=== PATIENT | male | born 1955 | race Caucasian/White ===

== ENCOUNTER 2020-09-20 15:21 | Emergency (ER) | payer OTHER ==
[2020-09-20] MEDS ORDERED: LORazepam 2 MG/ML VIAL ONE (16:01)
[2020-09-20] MEDS ORDERED: ZIPRASIDONE MESYLA 20 MG/VIAL IM ONE (16:01)
[2020-09-20] MEDS ORDERED: NA CHLORIDE 0.9% 1,000 ML ONE (16:01)
[2020-09-20 16:10] LABS: Absolute Lymphocytes (CBC) 1.3 K/uL (0.7-4.9); Basophils % 0.4 % (0-1.3); Hematocrit 32.3 % (39.6-49.0); Lymphocytes % 12.1 % (15.3-44.8); MPV 7.1 fL (7.6-11.3); RBC Red Blood Cell Count 3.53 M/uL (4.33-5.43)
[2020-09-20 16:20] LABS: Protime INR 1.16
[2020-09-20 16:28] LABS: ALT/SGPT 66 U/L (12-78); AST/SGOT 64 U/L (15-37); Albumin 3.7 g/dL (3.4-5.0); Alkaline Phosphatase 73 U/L (45-117); BUN Blood Urea Nitrogen 16 mg/dL (7-18); Bicarbonate 26 mmol/L (21-32); Bilirubin Direct 0.2 mg/dL (0-0.2); Bilirubin Total 0.6 mg/dL (0.2-1.0); Glucose Level 92 mg/dL (74-106); Potassium 3.7 mmol/L (3.5-5.1); Protein, Total 7.2 g/dL (6.4-8.2); Sodium Level 138 mmol/L (136-145)
[2020-09-20] MEDS ORDERED: DIAZEPAM 10 MG/2 ML INJ SYRINGE ONE (16:33)
--- NOTE | 2020-09-20 17:36 | EDPHYS ---
Physician Documentation [facility] Name: Vlad Loyola Age: 64 yrs Sex: Male : 1955 Arrival Date: 09/20/2020 Time: 15:27 Bed 17 Private MD: ED Physician Germán Lopez HPI: 09/20 15:41 This 64 yrs old Male presents to ER via EMS with complaints of henry, not rn sleeping, agitated. 15:41 The patient presents to the emergency department with not sleeping, agitated. Onset: rn The symptoms/episode began/occurred 1 week(s) ago. Associated signs and symptoms: Pertinent negatives: abdominal pain, fever, hallucinations, homicidal ideation, substance abuse, suicide ideation. Severity of symptoms: At their worst the symptoms were moderate in the emergency department the symptoms are unchanged. The patient has experienced similar episodes in the past. The patient has not recently seen a physician. Family called 911 because he has been agitated lately, worse since father , trashed his house, not sleeping, pacing. Pt denies suicidal or homicidal ideation. . Historical: - Allergies: 15:36 No Known Allergies; jd3 - Home Meds: 15:36 Amitriptyline Oral [Active]; enalapril maleate Oral [Active]; risperidone oral oral jd3 [Active]; - PMHx: 15:36 Bipolar disorder; Hypertension; jd3 - Immunization history:: Adult Immunizations up to date. - Social history:: Smoking status: Patient denies any tobacco usage or history of. - Family history:: not pertinent. - Hospitalizations: : No recent hospitalization is reported. ROS: 15:41 Constitutional: Negative for fever, chills, and weight loss, Eyes: Negative for injury, rn pain, redness, and discharge, Cardiovascular: Negative for chest pain, palpitations, and edema, Respiratory: Negative for shortness of breath, cough, wheezing, and pleuritic chest pain, Abdomen/GI: Negative for abdominal pain, nausea, vomiting, diarrhea, and constipation, MS/Extremity: Negative for injury and deformity, Skin: Negative for injury, rash, and discoloration, Neuro: Negative for headache, weakness, numbness, tingling, and seizure, Psych: Negative for suicide ideation, homicidal ideation, and hallucinations. Exam: 15:41 Constitutional: This is a well developed, well nourished patient who is awake, alert rn Head/Face: Normocephalic, atraumatic. Eyes: Pupils equal round and reactive to light, extra-ocular motions intact. Lids and lashes normal. Conjunctiva and sclera are non-icteric and not injected. Cornea within normal limits. Periorbital areas with no swelling, redness, or edema. ENT: dry mm Cardiovascular: Tachycardic regular. No pulse deficits. Respiratory: No increased work of breathing, no retractions or nasal flaring. Abdomen/GI: Soft, non-tender MS/ Extremity: Pulses equal, no cyanosis. Neurovascular intact. Full, normal range of motion. Equal circumference. Neuro: Awake and alert, GCS 15, oriented to person, place, and situation. Cranial nerves II-XII grossly intact. Motor strength 5/5 in all extremities. Sensory grossly intact. Cerebellar exam normal. Vital Signs: 15:36 BP 158 / 94; Pulse 109; Resp 17 S; Temp 97.5(O); Pulse Ox 100% on R/A; Weight 81.65 kg jd3 (R); Height 6 ft. 0 in. (182.88 cm) (R); Pain 10/10; 16:30 BP 155 / 81; Pulse 100; Resp 17; Pulse Ox 98% ; bp 17:30 BP 160 / 84; Pulse 100; Resp 15; Pulse Ox 99% ; bp 18:30 BP 169 / 96; Pulse 100; Resp 17; Temp 97.9; Pulse Ox 98% ; bp 15:36 Body Mass Index 24.41 (81.65 kg, 182.88 cm) jd3 MDM: 15:31 Patient medically screened. rn 17:24 Differential diagnosis: depression, henry, bipolar, agitation. Data reviewed: vital rn signs, nurses notes, lab test result(s), EKG, and as a result, I will discharge patient. Counseling: I had a detailed discussion with the patient and/or guardian regarding: the historical points, exam findings, and any diagnostic results supporting the discharge/admit diagnosis, lab results, the need for outpatient follow up, to return to the emergency department if symptoms worsen or persist or if there are any questions or concerns that arise at home. Response to treatment: the patient's symptoms have markedly improved after treatment, and as a result, I will discharge patient. Special discussion: I discussed with the patient/guardian in detail that at this point there is no indication for admission to the hospital. It is understood, however, that if the symptoms persist or worsen the patient needs to return immediately for re-evaluation. ED course: Pt able to rest now, ambulatory to bathroom without assistance, will call family to pick him up. Still denies suicidal or homicidal ideation. Does not meet inpatient admission criteria. . 09/20 15:39 Order name: Acetaminophen rn 09/20 15:39 Order name: Basic Metabolic Panel rn 09/20 15:39 Order name: CBC with Diff rn 09/20 15:39 Order name: ETOH Level rn 09/20 15:39 Order name: Hepatic Function rn 09/20 15:39 Order name: PT-INR rn 09/20 15:39 Order name: Ptt, Activated rn 09/20 15:39 Order name: Salicylate rn 09/20 15:39 Order name: Urine Drug Screen rn 09/20 16:14 Order name: CBC with Automated Diff; Complete Time: 16:52 EDMS 09/20 16:29 Order name: Basic Metabolic Panel; Complete Time: 16:52 EDMS 09/20 16:29 Order name: Liver (Hepatic) Function; Complete Time: 16:52 EDMS 09/20 16:29 Order name: Acetaminophen Level; Complete Time: 16:52 EDMS 09/20 16:29 Order name: Alcohol Serum/Plasma; Complete Time: 16:52 EDMS 09/20 15:39 Order name: EKG - Nurse/Tech; Complete Time: 17:43 rn 09/20 15:39 Order name: IV Saline Lock; Complete Time: 16:23 rn 09/20 15:39 Order name: Labs collected and sent; Complete Time: 16:23 rn 09/20 15:39 Order name: Urine Dipstick-Ancillary (obtain specimen); Complete Time: 17:43 rn 09/20 16:31 Order name: Protime (+INR); Complete Time: 16:52 EDMS 09/20 16:31 Order name: PTT, Activated Partial Thromb; Complete Time: 16:52 EDMS 09/20 16:56 Order name: Salicylates Level; Complete Time: 17:12 EDMS 09/20 17:36 Order name: Urine Dipstick--Ancillary (enter results) eb 09/20 17:50 Order name: Urine Drug Screen EDMS Administered Medications: 16:00 Drug: Geodon 10 mg Route: IM; Site: right deltoid; bp 17:43 Follow up: Response: Marked relief of symptoms bp 16:00 Drug: Ativan 1 mg Route: IVP; Site: right forearm; bp 17:42 Follow up: Response: Anxiety decreased bp 16:00 Drug: NS 0.9% 1000 ml Route: IV; Rate: 1000 ml; Site: right forearm; bp 17:42 Follow up: IV Status: Completed infusion; IV Intake: 1000ml bp 16:22 Drug: Valium 5 mg Route: IVP; Site: right forearm; bp 17:42 Follow up: Response: Anxiety decreased bp Disposition: 09/20/20 17:35 Discharged to Home. Impression: Restlessness and agitation, Bipolar disorder. - Condition is Stable. - Discharge Instructions: Bipolar Disorder. - Medication Reconciliation Form, Thank You Letter, Antibiotic Education, Prescription Opioid Use form. - Follow up: Private Physician; When: As needed; Reason: Recheck today's complaints, Re-evaluation by your physician. - Problem is an ongoing problem. - Symptoms have improved. Signatures: Dispatcher [employer] EDMS Germán Lopez MD MD rn Davies, Jonathon, RN RN jd3 Peltier, Brian, RN RN bp Corrections: (The following items were deleted from the chart) 18:47 17:35 09/20/2020 17:35 Discharged to Home. Impression: Restlessness and agitation; bp Bipolar disorder. Condition is Stable. Forms are Medication Reconciliation Form, Thank You Letter, Antibiotic Education, Prescription Opioid Use. Follow up: Private Physician; When: As needed; Reason: Recheck today's complaints, Re-evaluation by your physician. Problem is an ongoing problem. Symptoms have improved. rn
--- NOTE | 2020-09-20 17:36 | ER ---
Nurse's Notes [facility] Name: Vlad Loyola Age: 64 yrs Sex: Male : 1955 Arrival Date: 09/20/2020 Time: 15:27 Bed 17 Private MD: Diagnosis: Restlessness and agitation;Bipolar disorder Presentation: 09/20 15:27 Chief complaint: EMS states: "the pt is in a manic episode of his bipolar. family and [facility] adult protective services and the mental health deputy were on scene. pt was pacing up and down his yard after leaving his house in a mess. the pt reported that he has tripped and fell multiple times recently hurting his back and his knees. even and steady gait on our arrival. it was reported to us from family that his father had passed recently and he was close with his father. after talking him down from mental health the pt agreed to come to the ER to get help for his bipolar and for pain medication.". Coronavirus screen: At this time, the client does not indicate any symptoms associated with coronavirus-19. Ebola Screen: Patient negative for fever greater than or equal to 101.5 degrees Fahrenheit, and additional compatible Ebola Virus Disease symptoms. Initial Sepsis Screen: Does the patient meet any 2 criteria? No. Patient's initial sepsis screen is negative. Does the patient have a suspected source of infection? No. Patient's initial sepsis screen is negative. Risk Assessment: Do you want to hurt yourself or someone else? Patient reports no desire to harm self or others. Onset of symptoms was September 20, 2020. 15:27 Method Of Arrival: EMS: [place] [id number] 15:27 Acuity: SUSAN 3 jd3 Triage Assessment: 15:35 General: Appears distressed, uncomfortable, Behavior is agitated, anxious, bp inappropriate for age, restless. Pain: Complains of pain in GENERALIZED. EENT: No deficits noted. Neuro: Level of Consciousness is awake, alert, obeys commands, Oriented to person, place, time, situation, Appropriate for age Speech LOUD, PRESSURED. Cardiovascular: Rhythm is sinus tachycardia. Respiratory: No deficits noted. GI: No signs and/or symptoms were reported involving the gastrointestinal system. : No signs and/or symptoms were reported regarding the genitourinary system. Derm: No deficits noted. Musculoskeletal: No deficits noted. Historical: - Allergies: 15:36 No Known Allergies; jd3 - Home Meds: 15:36 Amitriptyline Oral [Active]; enalapril maleate Oral [Active]; risperidone oral oral jd3 [Active]; - PMHx: 15:36 Bipolar disorder; Hypertension; jd3 - Immunization history:: Adult Immunizations up to date. - Social history:: Smoking status: Patient denies any tobacco usage or history of. - Family history:: not pertinent. - Hospitalizations: : No recent hospitalization is reported. Screenin:00 Abuse screen: Denies threats or abuse. Denies injuries from another. Nutritional bp screening: No deficits noted. Tuberculosis screening: No symptoms or risk factors identified. Fall Risk None identified. Assessment: 15:35 General: SEE TRIAGE NOTE. bp 16:30 General: Behavior is drowsy, quiet. Neuro: Oriented to Appropriate for age Moves all bp extremities. Full function. 17:52 Reassessment: FAMILY CONTACTED FOR D/C HOME, TRANSPORT PENDING. bp 18:45 Reassessment: FAMILY AT B/S FOR TRANSPORT. bp Vital Signs: 15:36 BP 158 / 94; Pulse 109; Resp 17 S; Temp 97.5(O); Pulse Ox 100% on R/A; Weight 81.65 kg jd3 (R); Height 6 ft. 0 in. (182.88 cm) (R); Pain 10/10; 16:30 BP 155 / 81; Pulse 100; Resp 17; Pulse Ox 98% ; bp 17:30 BP 160 / 84; Pulse 100; Resp 15; Pulse Ox 99% ; bp 18:30 BP 169 / 96; Pulse 100; Resp 17; Temp 97.9; Pulse Ox 98% ; bp 15:36 Body Mass Index 24.41 (81.65 kg, 182.88 cm) jd3 ED Course: 15:27 Patient arrived in ED. jd3 15:31 Germán Lopez MD is Attending Physician. rn 15:33 Triage completed. jd3 15:38 Irwin Nielsen, VALERIA is Primary Nurse. bp 15:38 Arm band placed on. jd3 16:00 Patient has correct armband on for positive identification. Bed in low position. Call bp light in reach. Side rails up X2. 16:00 Inserted saline lock: 22 gauge in right forearm, using aseptic technique. Blood bp collected. 17:36 sister Brunilda Tipton called to leave her contact information/ please call [phone] for any question or concerns. if he needs a ride home please call. 18:30 No provider procedures requiring assistance completed. IV discontinued, intact, bp bleeding controlled, No redness/swelling at site. Pressure dressing applied. Administered Medications: 16:00 Drug: Geodon 10 mg Route: IM; Site: right deltoid; bp 17:43 Follow up: Response: Marked relief of symptoms bp 16:00 Drug: Ativan 1 mg Route: IVP; Site: right forearm; bp 17:42 Follow up: Response: Anxiety decreased bp 16:00 Drug: NS 0.9% 1000 ml Route: IV; Rate: 1000 ml; Site: right forearm; bp 17:42 Follow up: IV Status: Completed infusion; IV Intake: 1000ml bp 16:22 Drug: Valium 5 mg Route: IVP; Site: right forearm; bp 17:42 Follow up: Response: Anxiety decreased bp Intake: 17:42 IV: 1000ml; Total: 1000ml. bp Outcome: 17:35 Discharge ordered by . rn 18:46 Discharged to home via wheelchair, with family. bp 18:46 Condition: stable 18:46 Discharge instructions given to patient, family, Instructed on discharge instructions, follow up and referral plans. Demonstrated understanding of instructions, follow-up care. 18:47 Patient left the ED. bp Signatures: Germán Lopez MD MD rn Davies, Jonathon, RN RN Irwin Cai RN RN Sondra Ruiz
[2020-09-20 17:50] LABS: Barbiturates NEGATIVE (NEGATIVE); Benzodiazepines POSITIVE (NEGATIVE); Cocaine NEGATIVE (NEGATIVE); METHAMPHETAM POSITIVE (NEGATIVE); Methadone NEGATIVE (NEGATIVE); Opiates NEGATIVE (NEGATIVE); Phencyclidine NEGATIVE (NEGATIVE); THC Cannibis NEGATIVE (NEGATIVE)
[2020-09-20 19:47] LABS: Urine Blood TRACE (NEG); Urine Glucose NEGATIVE (NEG); Urine Protein NEGATIVE (NEG); Urine pH 5.5 (5.0-7.0)
[2020-09-22 01:19] VITALS: BP 169/96; TEMP 97.9; O2SAT 98
== END 2020-09-20 18:47 | disposition home or self-care (01) ==
LOC: ER 15:21
DX: F31.9 Bipolar disorder, unspecified (principal); I10 Essential (primary) hypertension
CPT/HCPCS: 96361; 85025; 80048; 36415; 80320; 80329 ×2; 85610; 80076; 80307 ×8; 85730; 81003; 96375; 96372; 96374; 99284; J3360; J3486; J7030

== ENCOUNTER 2021-12-09 07:25 | Day surgery (SDC) | payer OTHER ==
[2021-12-06 11:46] LABS: Absolute Lymphocytes (CBC) 1.8 K/uL (0.7-4.9); Hematocrit 35.9 % (39.6-49.0); Lymphocytes % 23.8 % (15.3-44.8); MPV 7.1 fL (7.6-11.3)
[2021-12-06 11:58] LABS: Potassium 3.9 mmol/L (3.5-5.1)
--- NOTE | 2021-12-06 12:43 | RAD REPORT ---
EXAM DESCRIPTION: Sergo Pa And Lat (2 Views)12/06/2021 12:20 pm CLINICAL HISTORY: Preop for hernia repair/hypertension COMPARISON: None FINDINGS: The lungs appear clear of acute infiltrate. The heart is normal size. Aorta is tortuous/e ctatic. Mild old compression deformities involve the thoracic vertebral bodies IMPRESSION: No acute abnormalities displayed
--- NOTE | 2021-12-06 12:49 | EKG ---
Test Date: 2021-12-06 Test Time: 11:57:00 Motorcycle Repairer: RANJITH MEASUREMENT RESULTS: Intervals: Rate: 83 AR: 168 QRSD: 92 QT: 354 QTc: 415 [place]: P: 67 AR: 168 QRS: 43 T: 66 INTERPRETIVE STATEMENTS: Normal sinus rhythm Possible Left atrial enlargement Borderline ECG Compared to ECG 06/11/2007 10:06:37 No significant changes Electronically Signed On 12-06-21 12:49:16 DIP BRAZIER by Judah Arceo
[2021-12-09] MEDS ORDERED: NA CHLORIDE 0.9% 50 ML ONE (07:40)
[2021-12-09] MEDS ORDERED: Ringers Lactate 1,000 ML IV ONE ×2 (07:40→10:26)
[2021-12-09] MEDS ORDERED: NEOSTIGMINE 1 MG/ML -5 ML ONE (08:16)
[2021-12-09] MEDS ORDERED: FENTANYL CITR 100 MCG/2 ML ONE (08:16)
[2021-12-09] MEDS ORDERED: MIDAZOLAM HCL 2 MG/2 ML INJ ONE (08:16)
[2021-12-09] MEDS ORDERED: LIDOCAINE 1% MPF 5 ML VIAL ONE (08:16)
[2021-12-09] MEDS ORDERED: GLYCOPYRROLATE 0.2 MG/ML SYR ONE (08:16)
[2021-12-09] MEDS ORDERED: propofoL 200 MG/20 ML VIAL IV ONE (08:16)
[2021-12-09] MEDS ORDERED: ROCURONIUM 50 MG/5 ML VIAL IV ONE (08:17)
[2021-12-09] MEDS ORDERED: ONDANSETRON 4 MG/2 ML VIAL ONE ×2 (08:17→10:16)
[2021-12-09] MEDS ORDERED: KETOROLAC 30 MG/ML INJ ONE (08:17)
[2021-12-09] MEDS ORDERED: dexAMETHasone 4 MG/ML VIAL ONE (08:17)
[2021-12-09] MEDS ORDERED: MORPHINE 10 MG/ML VIAL ONE (08:17)
[2021-12-09] MEDS: CEFAZOLIN SODIUM 1 GM/VIAL ONE ×2 (08:35→09:06)
[2021-12-09] MEDS ORDERED: Mastisol Adhesive Liq ONE (09:46)
--- NOTE | 2021-12-09 09:53 | P.OP ---
Grill Chef: Pavan GARRIDO Preoperative diagnosis: Left inguinal hernia Postoperative diagnosis: Same, direct and indirect left inguinal hernia Primary procedure: Repair of left inguinal hernia Anesthesia: General Estimated blood loss: Minimal Specimen: Hernia sac and cord lipoma Findings: As above Operative Technique: Patient brought to the OR and placed in supine position. General anesthesia begun and patient prepped draped in usual sterile fashion. Marcaine 0.5% infiltrated locally for postop pain control. 15 blade used to make a 4 cm incision between the left pubic tubercle and the anterior iliac superior spine. Subcutaneous tissue divided and Darvin's fascia identified and divided. Aponeurosis of the external abdominal oblique identified and mobilized inferiorly to expose the shelving edge. Then the aponeurosis was opened through the external ring. Ilioinguinal nerve identified and retracted out of the field of dissection. Cord skeletonized and a small cord lipoma and a indirect sac identified. Both structures divided and sent to pathology as specimen. 2-0 Prolene used to close the hernia sac base. Patient also had a direct inguinal hernia which was reduced back into the peritoneal cavity and the inguinal floor was recreated. 2-0 Prolene was used to start closing at the pubic tubercle by joining the conjoined tendon to the shelving edge. A new internal ring was created. Marlex mesh plug was placed in the internal ring and secured with VersaTack stapler. Onlay mesh was placed on the inguinal floor secured medially to the pubic tubercle. The mesh was secured superiorly to the conjoined tendon, Inferiorly to the shelving edge and laterally to each other. Then ilioinguinal nerve and cord structures were placed back in their anatomic location. The aponeurosis was closed with 2-0 Prolene. 3-0 chromic was used to close the Darvin's fascia. 4-0 Monocryl was used to close skin. Sterile dressing applied patient awakened and taken to recovery in good general condition. Complications: None Transferred to: Recovery Room Condition: Good
[2021-12-09] MEDS: MEPERIDINE HCL 25 MG/ML SYR ONE ×2 (10:14→10:24)
[2021-12-09] MEDS: HYDROMORPHONE HCL 1 MG/ML INJ ONE ×4 (10:19→10:39)
[2021-12-09] MEDS ORDERED: HYDROCODONE/APAP 7.5/325 MG TAB ONE (11:12)
[2021-12-09 13:36] VITALS: BP 171/97; TEMP 98.3; O2SAT 98
== END 2021-12-09 12:28 | disposition home or self-care (01) ==
LOC: OR 07:25
PROVIDERS: ATTEND Surgery
PROC: 0YU60JZ Supplement Left Inguinal Region with Synthetic Substitute, Open Approach (ICD-10-PCS; principal; 2021-12-09 09:00)
DX: K40.90 Unilateral inguinal hernia, without obstruction or gangrene, not specified as recurrent (principal); Z20.822 Contact with and (suspected) exposure to COVID-19
CPT/HCPCS: 36415; 71046; 80048; 85025; 88302; 93005; J0690; J1100; J1170; J2175; J2250; J2405; J2704; J2710; J3010; J7120; U0003